=== PATIENT | male | born 1935 | race Caucasian/White ===

== ENCOUNTER 2022-09-01 11:10 | Day surgery (SDC) | payer OTHER ==
[2022-08-27 15:44] LABS: EOSINOPHILS % (AUTO) 2.1 % (0.0-8.0); HEMATOCRIT 43.6 % (42-54); LYMPHOCYTES % (AUTO) 18.2 % (21.0-51.0); MEAN CORPUSCULAR HEMOGLOBIN 32.7 pg (27.0-33.0); MEAN CORPUSCULAR HGB CONC 33.9 g/dL (32.0-36.0); MEAN CORPUSCULAR VOLUME 96.2 fL (79-99); MONOCYTES % (AUTO) 9.6 % (3.0-13.0); NEUTROPHILS % (AUTO) 68.7 % (40.0-77.0); PLATELET COUNT (AUTO) 220 K/uL (130-400); RED BLOOD CELL COUNT(AUTO) 4.53 MIL/uL (4.50-6.20); RED CELL DISTRIBUTION WIDTH 14.6 % (11.0-15.5)
[2022-08-27 15:54] LABS: CREATININE 1.2 mg/dL (0.5-1.5); POTASSIUM 4.7 mmol/L (3.5-5.1)
[2022-08-27 16:05] LABS: INR 2.43 (0.85-1.15); PROTHROMBIN TIME 25.2 SEC (9.6-11.6)
[2022-08-27 16:06] LABS: PARTIAL THROMBOPLASTIN TIME 40.6 SEC (26.3-35.5)
[~2022-09-01] VITALS: Ht 185.4 cm; Wt 109.0 kg
[2022-09-01] VITALS (9 sets, daily range): BP systolic 113–146; BP diastolic 57–82
[~2022-09-01 11:10] MED LIST: 0.9% NACL 500ML IV.SOLN 500 ML IV SCH; AEC81 PO; AMLO-258 PO; ATOR40TA69 PO; FLUT16H NASAL; METO50TA18 PO; VALS320T16 PO; WARF10TA45 PO; WARF7.5T49 PO
[2022-09-01] MEDS: DiphenhydrAMINE HCL 50 MG/ML VIAL IVP SCH ×2 (11:46→12:46)
[2022-09-01 12:01] LABS: APPEARANCE,URINE CLEAR (CLEAR); BILIRUBIN,URINE NEGATIVE (NEGATIVE); COLOR,URINE LIGHT-YELLOW (YELLOW); GLUCOSE, URINE (UA) NEGATIVE (NEGATIVE); KETONES,URINE NEGATIVE (NEGATIVE); LEUKOCYTE ESTERASE ,URINE NEGATIVE Leu/uL (NEGATIVE); NITRATE,URINE NEGATIVE (NEGATIVE); OCCULT BLOOD,URINE SMALL (NEGATIVE); PROTEIN,URINE NEGATIVE (NEGATIVE); UROBILINOGEN,URINE 0.2 mg/dL (0.2-1.0)
[2022-09-01 12:12] LABS: INR 1.07 (0.85-1.15); PROTHROMBIN TIME 11.6 SEC (9.6-11.6)
[2022-09-01 12:14] LABS: PARTIAL THROMBOPLASTIN TIME 30.6 SEC (26.3-35.5)
[2022-09-01] MEDS ORDERED: CEFAZOLIN SODIUM 1 GM VIAL ONE (12:50)
[2022-09-01] MEDS ORDERED: BUPIVACAINE/PF 0.25% 30ML VIAL IJ ONE (12:50)
[2022-09-01] MEDS ORDERED: MIDAZOLAM HCL 1 MG/ML 2ML VIAL ONE (12:50)
[2022-09-01] MEDS ORDERED: LIDOCAINE HCL 1% 20 ML VIAL ONE (12:50)
[2022-09-01] MEDS ORDERED: FENTANYL CITRATE PF 50 MCG/1 ML 2ML VIAL ONE (12:51)
[2022-09-01] MEDS ORDERED: OCTYL 2-CYANOACRYLATE 1 EACH TP ONE (14:18)
== END 2022-09-01 18:30 | disposition home or self-care (01) ==
LOC: DAH 11:10
PROVIDERS: ATTEND Internal Medicine Interventional Cardiology
DX: Z45.010 Encounter for checking and testing of cardiac pacemaker pulse generator [battery] (principal); I49.5 Sick sinus syndrome; I10 Essential (primary) hypertension; I48.91 Unspecified atrial fibrillation; Z79.82 Long term (current) use of aspirin; Z79.01 Long term (current) use of anticoagulants; Z79.899 Other long term (current) drug therapy
CPT/HCPCS: 80048; 85025; 85610 ×2; 85730 ×2; 93005; 33228; 81003; 36415 ×2; C1785; J1200; J3010; J0690; J3490; J2250; A4215; A4222; A4221; A4663; A4216; J7030; A4606; A4223 ×3; 99156; 99157